=== PATIENT | male | born 1955 | race Caucasian/White ===

== ENCOUNTER → 2018-02-04 | Outpatient (CLI) | payer OTHER ==
[~2018-02-04] MED LIST: IBUP-1223 PO
== END | disposition home or self-care (01) ==
LOC: RAD 09:37
PROVIDERS: ATTEND Surgery
DX: R10.9 Unspecified abdominal pain (principal)
CPT/HCPCS: 78227; A9537

== ENCOUNTER 2018-09-20 05:56 | Emergency (ER) | payer MEDICARE, OTHER ==
[~2018-09-20] VITALS: Ht 190.5 cm; Wt 110.7 kg
[2018-09-20] MEDS ORDERED: MELO15TA24 PO (06:06)
--- NOTE | 2018-09-20 06:17 | NUR ---
FIRST CONTACT WITH PT. PT HERE NOTING THAT FOR THE LAST MONTH HE HAS BEEN HAVING INTERMITTENT ABD PAIN AND "GURGLING" BOWELS HAVE BEEN LOOSE, YESTERDAY HAD INCREASE IN PAIN, CRAMPING, NOTED SOME BLOOD IN HIS STOOL. NOTES SWELLING ABD. FEELING NAUSEATED THIS AM WITH HEADACHE. NOTES THAT LAST WEEK HE WAS STARTED ON AUGMENTIN FOR SINUS INFECTION. DOES HAVE HISTORY DIVERTICULITIS HOWEVER STATES THAT THIS FEELS DIFFERENT. PT'S AOX4. RESPS EVEN AND UNLABORED. BP/SPO2 MONITORS IN PLACE. CALL LIGHT WITHIN REACH. AWAITING EDMD ASSESSMENT.
--- NOTE | 2018-09-20 06:49 | NUR ---
report given to espinoza ivan.
[2018-09-20] MEDS ORDERED: HYDROmorphone 1 MG/ML, 1ML VIAL ONE (06:57)
[2018-09-20] MEDS ORDERED: ONDANSETRON 2MG/ML, 2ML ONE (06:57)
[2018-09-20] MEDS ORDERED: HYDROmorphone 2 MG/ML, 1ML IVPush PRN (07:00)
[2018-09-20] MEDS ORDERED: SODIUM CHLORIDE 0.9% 1,000ML IVBOLUS ONE (07:00)
[2018-09-20] MEDS ORDERED: ONDANSETRON 2MG/ML, 2ML IVPush ONE (07:00)
[2018-09-20] MEDS ORDERED: SODIUM CHLORIDE FLUSH 10ML SYR IVF ONE (07:00)
--- NOTE | 2018-09-20 07:13 | NUR ---
Report from Yudith QUILES. Pt ambulatory to bathroom and back to bed with steady gait. Urine sample collected. Pt positioned for comfort in bed with pillow and blanket. Pt medicated per JUN for low abd pain 07/23. Pt denies other needs.
[2018-09-20 07:31] LABS: BASOPHILS # (AUTO) 0.04 x10^3/uL (0-0.1); BASOPHILS % (AUTO) 0 % (0-1); EOSINOPHILS # (AUTO) 0.15 x10^3/uL (0-0.4); EOSINOPHILS % (AUTO) 1 % (1-7); LYMPHOCYTES # (AUTO) 1.14 x10^3/uL (1-3.4); LYMPHOCYTES % (AUTO) 9 % (22-44); MD NO; MEAN CORPUSCULAR HEMOGLOBIN 33.8 pg (27.5-34.5); MEAN CORPUSCULAR HGB CONC 33.5 g/dL (33.2-36.2); MEAN CORPUSCULAR VOLUME 100.8 fL (81-97); MEAN PLATELET VOLUME 7.8 fL (7.4-10.4); MONOCYTES # (AUTO) 0.94 x10^3/uL (0.2-0.8); MONOCYTES % (AUTO) 8 % (2-9); NEUTROPHILS # (AUTO) 10.25 x10^3/uL (1.8-6.8); NEUTROPHILS % (AUTO) 82 % (42-75); PLATELET COUNT 190 x10^3/uL (130-400); RED BLOOD COUNT 4.74 x10^6/uL (4.38-5.82); RED CELL DISTRIBUTION WIDTH 12.3 % (9.4-14.8)
[2018-09-20 07:39] LABS: ALANINE AMINOTRANSFERASE 34 U/L (12-78); ALBUMIN 3.9 g/dL (3.4-5.0); ANION GAP 6 mmol/L (5-15); CALCIUM 9.1 mg/dL (8.5-10.1); CHLORIDE 106 mmol/L (98-107); CREATININE 1.08 mg/dL (0.7-1.3)
--- NOTE | 2018-09-20 07:39 | NUR ---
Pt states pain 0/10 after meds, not nauseous.
[2018-09-20 07:42] LABS: ALKALINE PHOSPHATASE 84 U/L (45-117); BILIRUBIN,TOTAL 1.8 mg/dL (0.2-1.0); TOTAL PROTEIN 7.4 g/dL (6.4-8.2)
--- NOTE | 2018-09-20 07:57 | NUR ---
Pt to CT via [facility].
[2018-09-20 08:03] LABS: MICROSCOPIC INDICATED
--- NOTE | 2018-09-20 08:28 | NUR ---
Pt resting in bed with eyes closed, resp even and unlabored, NADN. Pt awakens easily to this RN entering room. Pt denies pain or other needs at this time.
[2018-09-20 08:41] LABS: CULTURE INDICATED? NO
[2018-09-20] MEDS ORDERED: CEFOTETAN PMX 1GM/50ML 50 ML IV ONE (09:00)
[2018-09-20] MEDS ORDERED: METRONIDAZOLE PMX 500MG/100ML 100 ML IV ONE (09:00)
--- NOTE | 2018-09-20 09:25 | NUR ---
Pt resting in bed, NADN, requesting water.
--- NOTE | 2018-09-20 09:28 | NUR ---
Pt given ice water per request, ok per Dr. Hernandez.
--- NOTE | 2018-09-20 09:29 | NUR ---
Dr. Hernandez at bedside to discuss POC with pt and his .
[2018-09-20] MEDS ORDERED: METRONIDAZOLE PMX 500MG/100ML 100 ML ONE (09:32)
[2018-09-20] MEDS ORDERED: CEFOTETAN PMX 1GM/50ML 50 ML ONE (10:56)
--- NOTE | 2018-09-20 11:01 | NUR ---
Second abx initated per order. Pt continues resting in bed, NADN, denies needs.
[2018-09-20 11:40] VITALS: BP 122/74
== END 2018-09-20 11:42 | disposition home or self-care (01) ==
LOC: ED 06:39
DX: K57.32 Diverticulitis of large intestine without perforation or abscess without bleeding (principal); R11.2 Nausea with vomiting, unspecified; R19.7 Diarrhea, unspecified
CPT/HCPCS: 36415; 74177; 80053; 81001; 85025; 87040; 96361; 96365; 96367; 96375; 99284; J1170; J2405; J3490; J7030

== ENCOUNTER 2020-03-06 18:48 | Inpatient (IN) | payer MEDICARE ==
[~2020-03-06] VITALS: Ht 190.5 cm; Wt 115.9 kg
[~2020-03-06 18:48] MED LIST changes: +MELO15TA24 PO
--- NOTE | 2020-03-06 19:04 | NUR ---
PT TO CT VIA [facility] WITH ICU SUP AND ER SUP WELL TECH.
[2020-03-06] MEDS ORDERED: OMNIPAQUE 350 MG/ML, 100ML BOTTLE ONE (19:20)
[2020-03-06 19:30] LABS: BASOPHILS % (AUTO) 2 % (0-1); EOSINOPHILS % (AUTO) 4 % (1-7); LYMPHOCYTES % (AUTO) 28 % (22-44); MEAN CORPUSCULAR HEMOGLOBIN 33.8 pg (27.5-34.5); MEAN CORPUSCULAR HGB CONC 34.4 g/dL (33.2-36.2); MEAN PLATELET VOLUME 8.7 fL (7.4-10.4); MONOCYTES % (AUTO) 15 % (2-9); NEUTROPHILS % (AUTO) 51 % (42-75); PLATELET COUNT 214 x10^3/uL (130-400); RED BLOOD COUNT 4.95 x10^6/uL (4.38-5.82); RED CELL DISTRIBUTION WIDTH 12.7 % (9.4-14.8)
--- NOTE | 2020-03-06 19:31 | NUR ---
THIS IS A 65Y M COMES IN WITH FOR STROKE LIKE SYMPTOMS. PT REPORTS L SIDED NUMBNESS AND TINGLING IN FACE AND SCALP HOWEVER MOTOR FUNCTIONS REMAIN INTACT. PT STS SYMPTOMS BEGAN AROUND 1PM TODAY BUT RESOLVED AND CAME BACK WORSE TONIGHT. PT AND ALSO MENTION THAT HE IS UNABLE TO WALK A STRAIGHT LINE AND CONSTANTLY DRIFTS TO THE LEFT AND USES EMERY AT HOME TO GUIDE HIM. THIS IS NEW OF TONIGHT. PT CONNECTED TO ALL MONITORING VSS, HTN NOTED.
[2020-03-06 19:34] LABS: MD NO
--- NOTE | 2020-03-06 19:40 | NUR ---
PT RESTING ON GURNEY NADN, PT REPORTS SOME NUMBNESS/ TINGLING LEFT SIDE BUT NO DEFICITS NOTED AT THIS TIME GROSS NEURO INTACT
[2020-03-06 19:50] LABS: INTERNATIONAL NORMALIZED RATIO 1.2 (0.93-1.1); PROTHROMBIN TIME 12.7 Seconds (9.6-11.5)
[2020-03-06] MEDS ORDERED: ASPIRIN 81 MG TABLET CHEW PO ONE (20:30)
--- NOTE | 2020-03-06 20:52 | NUR ---
PT AMBULATED TO RESTROOM, UNABLE TO WALK STRAIGHT LINE AND DRIFTS LEFT DESPITE BEST EFFORT TO WALK STRAIGHT
[2020-03-06] MEDS ORDERED: ASPIRIN 81 MG TABLET CHEW ONE (21:12)
[2020-03-06] MEDS ORDERED: MELOXICAM 15 MG TABLET PO PRN (23:00)
--- NOTE | 2020-03-06 23:08 | NUR ---
REPORT TO PETE QUILES PT READY FOR TRANSFER TO FLOOR ROOM AT THIS TIME
[2020-03-06] MEDS ORDERED: ACETAMINOPHEN 650 MG/20.3 ML UDC PO PRN (23:30)
[2020-03-06] MEDS ORDERED: MELATONIN 5 MG TABLET PO PRN (23:30)
[2020-03-06] MEDS ORDERED: ONDANSETRON 4 MG TABLET PO PRN (23:30)
[2020-03-06] MEDS ORDERED: DOCUSATE 100 MG CAPSULE PO PRN (23:30)
[2020-03-06 23:35] VITALS: BP 151/79
[2020-03-07 00:54] VITALS: BP 145/67
[2020-03-07 05:06] LABS: BASOPHILS % (AUTO) 1 % (0-1); EOSINOPHILS % (AUTO) 5 % (1-7); LYMPHOCYTES % (AUTO) 24 % (22-44); MEAN CORPUSCULAR HEMOGLOBIN 33.9 pg (27.5-34.5); MEAN CORPUSCULAR HGB CONC 34.5 g/dL (33.2-36.2); MEAN PLATELET VOLUME 8.5 fL (7.4-10.4); MONOCYTES % (AUTO) 13 % (2-9); NEUTROPHILS % (AUTO) 58 % (42-75); PLATELET COUNT 184 x10^3/uL (130-400); RED BLOOD COUNT 4.85 x10^6/uL (4.38-5.82); RED CELL DISTRIBUTION WIDTH 12.9 % (9.4-14.8)
[2020-03-07 05:16] LABS: MD NO
[2020-03-07 05:18] LABS: ANION GAP 6 mmol/L (5-15); CALCIUM 8.9 mg/dL (8.5-10.1); CHLORIDE 111 mmol/L (98-107)
[2020-03-07 05:21] LABS: CHOL/HDL RATIO 3.9; CHOLESTEROL, TOTAL 171 mg/dL (140-239); CREATININE 1.12 mg/dL (0.7-1.3); HDL CHOL % 26 % (26-37); HDL CHOLESTEROL (DIRECT) 44 mg/dL (40-60); LDL CHOLESTEROL,CALCULATED 112 mg/dL (54-169); LDL/HDL RATIO 2.5 (0.5-3.0); TRIGLYCERIDES 76 mg/dL (50-200); VLDL CHOLESTEROL 15 mg/dL (0-25)
[2020-03-07] MEDS ORDERED: ASPIRIN 81 MG TABLET CHEW PO/NG SCH ×2 (06:00→20:00)
[2020-03-07 07:29] VITALS: BP 163/89
[2020-03-07] MEDS ORDERED: ACETAMINOPHEN 325 MG TABLET ONE (07:33)
[2020-03-07 12:50] VITALS: BP 147/80
[2020-03-07] MEDS ORDERED: ASPI-515 PO (16:59)
[2020-03-07] MEDS ORDERED: ATOR20TA37 PO (16:59)
[2020-03-07] MEDS ORDERED: ATORVASTATIN 20 MG TABLET PO SCH (21:00)
== END 2020-03-07 17:45 | disposition home or self-care (01) | DRG 69 ==
LOC: ED 21:04 → EDIP 21:08 → 5SO 23:28
PROVIDERS: ADMIT Internal Medicine; ATTEND Internal Medicine
DX: G45.9 Transient cerebral ischemic attack, unspecified (principal); E78.5 Hyperlipidemia, unspecified; F17.200 Nicotine dependence, unspecified, uncomplicated; I10 Essential (primary) hypertension; I67.2 Cerebral atherosclerosis; M51.36 Other intervertebral disc degeneration, lumbar region; G89.29 Other chronic pain; M54.9 Dorsalgia, unspecified; Z82.49 Family history of ischemic heart disease and other diseases of the circulatory system
CPT/HCPCS: 36415; 70450; 70496; 70498; 70551; 80047; 80048; 80061; 82962; 83036; 84443; 85025; 85610; 85730; 93005; 93306; 99285; G0378; Q9967; 92523-GN

== ENCOUNTER → 2020-03-25 | Outpatient (CLI) | payer MEDICARE ==
[~2020-03-25] MED LIST changes: +ASPI-515 PO; +ATOR20TA37 PO; +REGADENOSON 0.4 MG/5 ML SYRINGE ONE
== END | disposition home or self-care (01) ==
LOC: CFH 12:10
PROVIDERS: ATTEND Internal Medicine Cardiovascular Disease
DX: R06.02 Shortness of breath (principal); I10 Essential (primary) hypertension
CPT/HCPCS: 78452; 93017; A9502; J2785

== ENCOUNTER 2020-05-19 10:36 | Outpatient (CLI) | payer MEDICARE | END 2020-05-19 23:59 | disposition home or self-care (01) | LOC: STAR 10:36 | PROVIDERS: ATTEND Family Medicine | DX: Z01.818 Encounter for other preprocedural examination (principal); Z01.812 Encounter for preprocedural laboratory examination; Z01.811 Encounter for preprocedural respiratory examination; Z01.810 Encounter for preprocedural cardiovascular examination; R82.90 Unspecified abnormal findings in urine; R94.31 Abnormal electrocardiogram [ECG] [EKG]; M48.061 Spinal stenosis, lumbar region without neurogenic claudication; M54.16 Radiculopathy, lumbar region; R79.1 Abnormal coagulation profile | CPT/HCPCS: 93005 ==

== ENCOUNTER → 2020-05-19 | Outpatient (CLI) | payer MEDICARE ==
[~2020-05-19] MED LIST changes: -ASPI-515 PO; +ASPI-963 PO; -REGADENOSON 0.4 MG/5 ML SYRINGE ONE
[2020-05-19 09:25] LABS: BASOPHILS % (AUTO) 0 % (0-1); EOSINOPHILS % (AUTO) 6 % (1-7); LYMPHOCYTES % (AUTO) 24 % (22-44); MEAN CORPUSCULAR HEMOGLOBIN 33.5 pg (27.5-34.5); MEAN CORPUSCULAR HGB CONC 35.7 g/dL (33.2-36.2); MEAN PLATELET VOLUME 7.4 fL (7.4-10.4); MONOCYTES % (AUTO) 12 % (2-9); NEUTROPHILS % (AUTO) 58 % (42-75); PLATELET COUNT 257 x10^3/uL (130-400); RED BLOOD COUNT 4.77 x10^6/uL (4.38-5.82); RED CELL DISTRIBUTION WIDTH 13.3 % (9.4-14.8)
[2020-05-19 09:26] LABS: MD NO
[2020-05-19 09:28] LABS: MICROSCOPIC NOT IND
[2020-05-19 09:37] LABS: ANION GAP 4 mmol/L (5-15); CALCIUM 9.2 mg/dL (8.5-10.1); CHLORIDE 111 mmol/L (98-107)
[2020-05-19 09:39] LABS: INTERNATIONAL NORMALIZED RATIO 1.18 (0.93-1.1); PROTHROMBIN TIME 12.6 Seconds (9.6-11.5)
[2020-05-19 09:40] LABS: CREATININE 1.09 mg/dL (0.7-1.3)
== END | disposition home or self-care (01) ==
LOC: LAB 08:52
PROVIDERS: ATTEND Neurological Surgery
DX: Z01.810 Encounter for preprocedural cardiovascular examination (principal); Z01.811 Encounter for preprocedural respiratory examination; Z01.812 Encounter for preprocedural laboratory examination; R79.1 Abnormal coagulation profile; R94.31 Abnormal electrocardiogram [ECG] [EKG]; R82.90 Unspecified abnormal findings in urine; M48.061 Spinal stenosis, lumbar region without neurogenic claudication; M47.26 Other spondylosis with radiculopathy, lumbar region; M47.818 Spondylosis without myelopathy or radiculopathy, sacral and sacrococcygeal region; M41.85 Other forms of scoliosis, thoracolumbar region
CPT/HCPCS: 36415; 71046; 72110; 80048; 81003; 85025; 85610; 85730